=== PATIENT | male | born 2000 | race Caucasian/White ===

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

== ENCOUNTER 2019-03-11 09:26 | Emergency (ER) | payer MEDICAID ==
[~2019-03-11] VITALS: Ht 160 cm; Wt 62.9 kg
[~2019-03-11 09:26] MED LIST changes: +HYDR-4011 PO; +IBUP-1542 PO; +METR500T PO
[2019-03-11 09:28] VITALS: BP 143/91; PULSE 82; RESP 20; Ht 160 cm; Wt 62.9 kg
[2019-03-11] MEDS ORDERED: CEFTRIAXONE 250 MG INJ IM ONE (10:00)
[2019-03-11] MEDS ORDERED: AZITHROMYCIN 500 MG TAB PO ONE (10:00)
[2019-03-11] MEDS ORDERED: LIDOCAINE 1% (MPF) 5 ML VIAL INJ ONE (10:00)
--- NOTE | 2019-03-11 10:38 | ERD ---
ER Documentation Chief Complaint Chief Complaint PAINFUL URINATION , WITH YELLOWISH DISCHARGES HPI 19-year-old male presenting with dysuria and discharge x2 weeks. 2 weeks ago he noted some blood in his urine however that has resolved. He denies any abdominal pain or fevers. Denies back pain. Denies any new sexual partners and had STD testing 2 to 3 months ago which was negative. Denies other medical problems. NKDA. Surgical history denies. Social history smokes marijuana about 3 times a week denies drug use. ROS All systems reviewed and are negative except as per history of present illness. Medications Home Meds Active Scripts Metronidazole* (Flagyl*) 500 Mg Tablet, 500 MG PO TID for 7 Days, TAB Prov:TIN URIARTE PA-C 03/11/19 Hydrocodone/Acetaminophen (Scribner 5-325 Tablet) 1 Each Tablet, 1-2 TAB PO Q6H PRN for PAIN, #14 TAB Prov:SAMUEL AGUSTIN 10/12/18 Ibuprofen* (Motrin*) 600 Mg Tab, 600 MG PO Q6 for pain, #30 TAB Prov:SAMUEL AGUSTIN 10/12/18 Ibuprofen* (Motrin*) 400 Mg Tab, 400 MG PO Q6H PRN for PAIN AND OR ELEVATED TEMP, #30 TAB Prov:BRIGID CHARLTON PA-C 01/07/18 Erythromycin Base (Erythromycin) 1 Gm Oint...g., 1 APPLIC RIGHT EYE QID for 7 Days Prov:BRIGID CHARLTON PA-C 01/07/18 Naproxen* (Naprosyn*) 500 Mg Tablet, 500 MG PO BID PRN for PAIN AND/OR INFLAMMATION, #20 TAB Prov:SAMUEL TURNER PA-C 05/28/17 Clindamycin Hcl* (Clindamycin Hcl*) 300 Mg Capsule, 300 MG PO TID for 7 Days, CAP Prov:ALAN LONDON PA-C 04/24/17 Pilocarpine Hcl* (Salagen*) 5 Mg Tablet, 5 MG PO BID, #20 TAB Prov:ALAN LONDON PA-C 04/24/17 Hydrocodone Bit-Acetaminophen* (Scribner*) 5-325 Mg Tab, 1 TAB PO Q6 PRN for PAIN, #20 TAB Prov:JUDY BALDWIN NP 10/07/15 Dicyclomine HCl (Dicyclomine HCl) 10 Mg Capsule, 10 MG PO QID for abdominal cramping, #30 CAP Prov:JUDY BALDWIN [employer] 10/07/15 Reported Medications [none] Unknown Strength No Conflict Check 10/07/15 Allergies Allergies: Coded Allergies: No Known Allergy (Unverified , 01/06/18) PMhx/Soc History of Surgery: No Anesthesia Reaction: No Hx Neurological Disorder: No Hx Respiratory Disorders: No Hx Cardiac Disorders: Yes (HEART MURMUR) Hx Psychiatric Problems: No Hx Miscellaneous Medical Probl: No Hx Alcohol Use: Yes (rarely) Hx Substance Use: Yes (marijuana) Hx Tobacco Use: No FmHx Family History: No diabetes, No coronary disease, No other Physical Exam Vitals Vital Signs Date Temp Pulse Resp B/P (MAP) Pulse Ox O2 O2 Flow FiO2 Time Delivery Rate 03/11/19 98.4 82 20 143/91 97 09:28 (108) Physical Exam GENERAL: The patient is well-appearing, well-nourished, in no acute distress CHEST: Clear to auscultation bilaterally. There are no rales, wheezes or rhonchi. HEART: Regular rate and rhythm. No murmurs, clicks, rubs or gallops. ABDOMEN:Soft, nontender and nondistended. Good bowel sounds. No rebound or guarding. No gross peritonitis. No gross organomegaly or masses. No Vaughn sign or McBurney point tenderness. BACK: No midline or flank tenderness. : No swelling or tenderness to palpation of testicles. Patient is uncircumcised with no lesions noted around the head of the penis. No discharge extracted from the penis Results 24 hrs Laboratory Tests Test 03/11/19 10:16 Bedside Urine pH (LAB) 5.5 Bedside Urine Protein (LAB) 1+ Bedside Urine Glucose (UA) Negative Bedside Urine Ketones (LAB) Negative Bedside Urine Blood 1+ Bedside Urine Nitrite (LAB) Negative Bedside Urine Leukocyte Esterase (L Trace Current Medications Medications Dose Sig/Lavell Start Time Status Last (Trade) Ordered Route PRN Stop Time Admin Dose Reason Admin 1,000 mg ONCE ONCE 03/11/19 DC 03/11/19 Azithromycin PO 10:00 03/11/19 10:12 (Zithromax) 10:01 Ceftriaxone 250 mg ONCE ONCE 03/11/19 DC 03/11/19 Sodium IM 10:00 03/11/19 10:12 (Rocephin) 10:01 Lidocaine 5 ml ONCE ONCE 03/11/19 DC 03/11/19 (Xylocaine INJ 10:00 03/11/19 10:12 1% (Mpf)) 10:01 Procedures/MDM ER Course: 250mg Rocephin given in ED. Azithromycin given in ED. STD screening sent to lab for culture. Urinalysis negative. MDM: 19-year-old male presenting with dysuria. Patient will be treated for STD as patient's urine is within normal limits. STD screening sent off and patient is recommended to avoid intercourse with individual until his partner is treated for possible STD. Patient is discharged with strict ER precautions and told to follow-up with primary care. I have low suspicion for testicular or penile emergency or abnormality. All questions answered at discharge Departure Diagnosis: Primary Impression: Dysuria Condition: Stable Patient Instructions: Dysuria Referrals: [facility] YOU HAVE RECEIVED A MEDICAL SCREENING EXAM AND THE RESULTS INDICATE THAT YOU DO NOT HAVE A CONDITION THAT REQUIRES URGENT TREATMENT IN THE EMERGENCY DEPARTMENT. FURTHER EVALUATION AND TREATMENT OF YOUR CONDITION CAN WAIT UNTIL YOU ARE SEEN IN YOUR DOCTORS OFFICE WITHIN THE NEXT 1-2 DAYS. IT IS YOUR RESPONSIBILITY TO MAKE AN APPOINTMENT FOR FOLOW-UP CARE. IF YOU HAVE A PRIMARY DOCTOR --you should call your primary doctor and schedule an appointment IF YOU DO NOT HAVE A PRIMARY DOCTOR YOU CAN CALL OUR PHYSICIAN REFERRAL HOTLINE AT IF YOU CAN NOT AFFORD TO SEE A PHYSICIAN YOU CAN CHOSE FROM THE FOLLOWING [facility] [address] [facility] [address] [facility] [address] [facility] [address] [facility] [address]. [facility]. [address] Additional Instructions: FOLLOW UP WITH YOUR PRIMARY CARE PHYSICIAN TOMORROW.Return to this facility if you are not improving as expected. TIN URIARTE PA-C Mar 11, 2019 10:38
== END 2019-03-11 10:26 | disposition home or self-care (01) ==
LOC: FTE 09:26
DX: R30.0 Dysuria (principal)
CPT/HCPCS: 81003; 87591; 96372; J0696; Z7502; Z7610